=== PATIENT | female | born 1930 | race Caucasian/White ===

== ENCOUNTER 2017-02-28 08:26 | Outpatient (CLI) | payer MEDICARE ==
[~2017-02-28] VITALS: Ht 160 cm; Wt 66.4 kg
--- NOTE | ~2017-02-28 | HEMODYNAMI ---
PATIENT:AD REYNOLDS MEDICAL RECORD: [id number] : [birth year] LOCATION:[facility] D.[address]127 [facility]# [id number] ADMISSION DATE: 02/28/17 Generatedon:03/01/201710:14 Patient name: AD REYNOLDS Patient #: [id number] : 1930 Date of study: 03/01/2017 Page: Of Hemodynamic Procedure Report Patient Data Patient Demographics Procedure consent was obtained First Name: AD Gender: Female Last Name: GAIL : 1930 [facility] Initial: ROBBIE Age: 86 year(s) Patient #: [id number] Race: SSN: [id number] Additional ID: [id number] Contact details Address: [address] [place] [address] State: [place] City: [place] Zip code: [address] Past Medical History Allergies Allergen Reaction Date Comments Reported Other allergy 03/01/2017 Latex, Sulfa, Epinephrine Admission Admission Data Admission Date: 02/28/2017 Admission Time: 8:26 Arrival Date: 02/28/2017 Arrival Time: 8:26 Admit Source: Other Insurance Payor: Medicare Room #: D.2127 Height (in.): 64 BSA: 1.69 (m2) Height (cm.): 162.56 BMI: 24.37 (kg/m2) Weight (lbs.): 142 Weight (kg.): 64.41 Lab Results Lab Result Date: 03/01/2017 Lab Result Time: 0:00 Biochemistry Name Units Result Min Max BUN mg/dl 29 --(----)-* 7 18 Creatinine mg/dl 0.9 --(-*--)-- 0.6 1.3 CBC Name Units Result Min Max Hemoglobin g/dl 11.7 *-(----)-- 13.5 17.5 Procedure Procedure Types Cath Procedure PCI Procedure Coronary Stent Initial Miscellaneous Procedures Moderate Sedation up to 15 minutes Procedure Description Procedure Date Procedure Date: 03/01/2017 Procedure Start Time: 9:53 Procedure End Time: 10:11 Procedure Staff Name Function Akhil Deluna MD Performing Physician Lina Vaughn RT Scrub Dom Michelle RN Nurse Savanna Guillory RT Monitor Indication Angina Procedure Data Cath Procedure Fluoroscopy Diagnostic fluoroscopy Total fluoroscopy Time: 3.6 time: 3.6 min min Diagnostic fluoroscopy Total fluoroscopy dose: dose: 91.02 mGy 91.02 mGy Contrast Material Contrast Material Type Amount (ml) Isovue 370 61 Entry Location Entry Primary Successful Side Size Upsize Upsize Entry Closure Succes sful Closure Location (Fr) 1 (Fr) 2 (Fr) Remarks Device Remarks Femoral Left 6 Fr Exoseal artery Short Estimated blood loss: 5 ml Procedure Complications No complications Procedure Medications Medication Administration Route Dosage Oxygen NC 2 l/min Lidocaine 2% added to field 20 Heparin Flush Bag added to field 2 bags (1000units/500ml NS) 0.9% NaCl I.V. 100 ml/hr Versed I.V. 1 mg Fentanyl I.V. 50 mcg Heparin Bolus I.V. 4000 units Nitroglycerin IC/IA I.C. 200 mcg Versed I.V. 0.5 mg Fentanyl I.V. 25 mcg Hemodynamics Rest BSA: 1.69 (m2) HGB: 11.7 (g/dl) O2 Consumption: Estimated: 145.77 (ml/min) O2 Co nsumption indexed: Estimated:86.25 (ml/min/m) Heart Rate: 65 (bpm) Snapshots Pre Cath Intra NCS Post Cath Vital Signs Time Heart Resp SPO2 NIBP (mmHg) Rhythm Pain Sedation Rate (ipm) (%) Status Level (bpm) 9:41:30 76 18 100 149/87(120) NSR 0 (11) 10(A) , No pain 9:45:50 74 16 98 151/78(114) NSR 0 (11) 10(A) , No pain 9:50:02 76 20 95 133/77(106) NSR 0 (11) 10(A) , No pain 9:54:14 66 18 96 122/69(105) NSR 0 (11) 9(A) , No pain 9:58:28 70 16 95 128/64(89) NSR 0 (11) 9(A) , No pain 10:02:44 72 17 97 122/51(89) NSR 0 (11) 9(A) , No pain 10:06:56 71 18 96 136/74(114) NSR 0 (11) 9(A) , No pain 10:10:41 69 17 99 135/67(94) NSR 0 (11) 10(A) , No pain Medications Time Medication Route Dose Verified Delivered Reason Notes Effectiveness by by 9:45:10 Oxygen NC 2 Akhil Buffnakul used for l/min Regi Michelle RN procedure 9:45:17 Lidocaine 2% added 20ml Akhil Landaverde for local to vial Regi Deluna MD anesthetic field 9:45:23 Heparin Flush added 2 Akhil Landaverde used for Bag to bags Regi Deluna MD procedure (1000units/500ml field NS) 9:45:33 0.9% NaCl I.V. 100 Akhil Thomsonie Per physician ml/hr Regi Michelle RN 9:51:41 Versed I.V. 1 mg Akhil Fernandes for sedation Regi Michelle RN 9:51:47 Fentanyl I.V. 50 Akhil Thomsonie for sedation mcg Regi Michelle RN 9:54:18 Heparin Bolus I.V. 4000 Akhil Thomsonie for units Regi Michelle RN anticoagulation 10:02:27 Nitroglycerin I.C. 200 Akhil Landaverde for IC/IA mcg Regi Deluna MD vasodilation 10:04:03 Fentanyl I.V. 25 Akhil Fernandes for sedation mcg Regi Michelle RN 10:04:57 Versed I.V. 0.5 Akhil Thomsonie for sedation mg Regi Michelle RN Procedure Log Time Note 9:01:51 Informed consent obtained and on chart 9:03:18 Admit Source: Other 9:03:23 Arrival Date: 02/28/2017 8:26:00 AM 9:04:05 Insurance Payor : Medicare 9:04:49 Lab Result : Hemoglobin 11.7 g/dl 9:04:49 Lab Result : Creatinine 0.9 mg/dl 9:04:49 Lab Result : BUN 29 mg/dl 9:04:57 Diagnostic Cath Status : Elective 9:05:19 Indication : Angina 9:05:23 Lina Vaughn RT(R) sent for patient. Start room use. 9:05:24 Time tracking: Regular hours 9:05:29 Plan of Care:Hemodynamics will remain stable., Cardiac rhythm will remain stable., Comfort level will be maintained., Respiratory function will remain adequate., Patient/ family verbilizes understanding of procedure., Procedure tolerated without complication., Recovers from procedure without complications.. 9:28:40 Patient received from Med II to CCL 3 Alert and oriented. Tansferred to table in Supine position. 9:28:41 Warm blankets applied, and pernell hugger turned on for patient comfort. 9:28:42 Correct patient and procedure confirmed by team. 9:28:43 ECG and BP/O2 sat monitors applied to patient. 9:40:23 Baseline sample Acquired. 9:40:23 Vital chart was started 9:40:28 Rhythm: sinus rhythm 9:40:29 Full Disclosure recording started 9:40:33 H&P Date Dictated: 03/01/2017 Within 30 days and on chart., H&P Addendum completed by physician on day of procedure. (MUST COMPLETE FOR ALL OUTPATIENTS). 9:40:34 Pre-procedure instructions explained to patient. 9:40:35 Pre-op teaching completed and patient verbalized understanding. 9:40:36 Family in waiting room. 9:40:38 Patient NPO since Midnight. 9:41:09 Patient allergic to Other allergyLatex, Sulfa, Epinephrine 9:41:13 Is the patient allergic to Iodine/contrast media? No. 9:41:14 Was the patient premedicated? No 9:41:15 Is patient on blood thinner?Yes 9:41:18 ACC The patient was administered the following blood thiners within the last 24 hours: ACCPlavix 9:41:31 Patient diabetic? No. 9:41:34 Previous problem with sedation/anesthesia? No ? 9:41:43 Snore? No 9:41:44 Sleep apnea? No 9:41:45 Deviated septum? No 9:41:45 Opens mouth fully? Yes 9:41:46 Sticks out tongue? Yes 9:41:48 Airway obstruction? No ? 9:41:50 Dentures? No ? 9:42:03 Pre procedure: right dorsailis pedis pulse 2+ Normal; easily identifiable; not easily obliterated 9:42:07 Patient pain scale 0/10 ?. 9:42:14 IV patent on arrival in left forearm with 0.9% NaCl at [facility]. 9:42:16 Lab results completed and on chart. 9:42:21 Left groin area was prepped with chlora-prep and draped in sterile fashion 9:42:22 Alarms reviewed by R. N. 9:42:22 Sharps counted by scrub and verified by R.N. 9:45:10 Oxygen 2 l/min NC was administered by Dom Michelle RN; used for procedure; 9:45:17 Lidocaine 2% 20ml vial added to field was administered by Akhil Deluna MD; for local anesthetic; 9:45:23 Heparin Flush Bag (1000units/500ml NS) 2 bags added to field was administered by Akhil Deluna MD; used for procedure; 9:45:33 0.9% NaCl 100 ml/hr I.V. was administered by Dom Michelle RN; Per physician; 9:49:23 Physician arrived 9:49:24 --------ALL STOP TIME OUT------ 9:49:24 Final Timeout: patient, procedure, and site verified with staff and physician. All members of the team are in agreement. 9:49:26 Left groin site verified by team. 9:49:29 Physical assessment completed. ASA score P 2 - A patient with mild systemic disease as per Akhil Deluna MD. 9:49:32 Sedation plan: IV Moderate Sedation Versed, Fentanyl 9:49:44 Use device set Femoral PCI 9:49:45 Acist Syringe opened to sterile field. 9:49:45 Acist Hand Control opened to sterile field. 9:49:45 Bag Decanter opened to sterile field. 9:49:46 Medline Cath Pack opened to sterile field. 9:49:46 Terumo 6Fr [place] Sheath opened to sterile field. 9:49:46 St Rito 260cm J .035 wire opened to sterile field. 9:49:47 Merit BasixCompak Inflation Kit opened to sterile field. 9:49:47 Acist Manifold opened to sterile field. 9:49:48 Tegaderm 4 x 4 opened to sterile field. 9:50:00 Bolton Whisper J 300cm 0.014 guide wire opened to sterile field. 9:51:41 Versed 1 mg I.V. was administered by Buffie Michelle RN; for sedation; 9:51:47 Fentanyl 50 mcg I.V. was administered by Dom Michelle RN; for sedation; 9:52:38 Procedure started. 9:53:52 Local anesthetic to left femerol artery with Lidocaine 2% by Akhil Deluna MD.INITIAL ACCESS ONLY 9:54:00 A 6 Fr Short sheath was inserted into the Left Femoral artery 9:54:15 Cordis 6FR XBLAD 3.5 guide catheter opened to sterile field. 9:54:18 Heparin Bolus 4000 units I.V. was administered by Dom Michelle RN; for anticoagulation; 9:54:46 6 Fr xblad 3.5 guide catheter was inserted over the wire 9:56:23 whisper wire advanced. 9:56:28 Wire advanced across lesion. 9:58:08 Inflation number: 1 A [place] Sci [place] 3.0 X 20 balloon was prepped and advanced across the Mid LAD, then inflated to 13 ADAMA for 0:10 (min:sec). 9:58:26 Inflation number: 2 The [place] Sci [place] 3.0 X 20 balloon was reinflated across the Mid LAD, to 17 ADAMA for 0:10 (min:sec). 9:58:57 Balloon removed over the wire. 10:00:57 Inflation Number: 3 A Biofreedom 3.0 x 28 stent was prepped and advanced across the Mid LAD. The stent was deployed at 15 ADAMA for 0:10 (min:sec). 10:01:26 Inflation number: 4 The stent balloon was then re-inflated across the Mid LAD to 9 ADAMA for 0:10 (min:sec). 10:02:27 Nitroglycerin IC/IA 200 mcg I.C. was administered by Akhil Deluna MD; for vasodilation; 10:03:56 Stent catheter was removed intact over wire. 10:03:57 Wire removed. 10:03:57 Guide catheter removed. 10:04:03 Fentanyl 25 mcg I.V. was administered by Dom Michelle RN; for sedation; 10:04:06 Cordis 6Fr Exoseal opened to sterile field. 10:04:14 Sheath removed intact; hemostasis achieved with Exoseal to the Left Femoral artery. 10:04:18 Procedure ended.(Physican Out) 10:04:25 St Rito Femstop Arch Gold opened to sterile field. 10:04:57 Versed 0.5 mg I.V. was administered by Dom Michelle RN; for sedation; 10::44 Fluoroscopy time 03.60 minutes. 10::49 Fluoroscopy dose: 91.02 mGy 10::49 Flurop Dose total: 91.02 10:09:54 Contrast amount:Isovue 370 61ml. 10::55 Sharps counted by scrub and verified by R.N. 10:10:08 Femstop placed over the left femerol artery at 150 mmHg. Hemostasis achieved. 10:10:10 Post Procedure Pulses reassessed and unchanged 10:10:15 Post procedure rhythm: unchanged. 10::17 Estimated blood loss: 5 ml 10::19 Post procedure instruction explained to patient.Patient verbalizes understanding. 10:10:19 Patient needs reinforcement of post procedure teaching. 10:11:02 Procedure type changed to Cath procedure, PCI procedure, Coronary Stent Initial, Miscellaneous Procedures, Moderate Sedation up to 15 minutes 10:11:25 Procedure and supply charges have been captured, reviewed, submitted and are correct. 10:11:32 Procedure Complication : No complications 10:11:34 Vital chart was stopped 10:11:34 See physician's report for complete and final results. 10:11:37 Report given to Med II. 10:11:39 Patient transfered to Med II with Stretcher. 10:11:41 Procedure ended. 10:11:41 Full Disclosure recording stopped 10::55 ACC-PCI Only Patient was given prescriptions, or instructed by Akhil Deluna MD to start/continue the following medications upon discharge: Plavix 10::57 End room use (Document Last) Intervention Summary Intervention Notes Time ActionType Lesion and Equipment Action# Pressure Duration Attributes Used 9:58:08 Inflate Mid LAD Moscow Sci 1 13 00:10 balloon [place] 3.0 X 20 balloon 9:58:26 Reinflate Mid LAD [place] Sci 2 17 00:10 balloon [place] 3.0 X 20 balloon 10:00:57 Place stent Mid LAD Biofreedom 3 15 00:10 3.0 x 28 stent 10:01:26 Reinflate Mid LAD Biofreedom 4 9 00:10 stent 3.0 x 28 balloon stent Device Usage Item Name Manufacture Quantity Catalog Number Hospital Part Current Mini mal Lot# / Charge Number Stock Stock Serial# Code Acist Acist 1 [id number] 682579 106692 20 Syringe Medical Systems Inc Acist Hand Acist 1 84602 128838 060803 499882 5 Control Medical Systems Inc Bag Microtek 1 2002S 855346 72333 778483 5 Decanter Medical Inc. Medline Cardinal 1 [id number] 924972 88059 319011 5 Cath Pack Health Terumo 6Fr Terumo 1 [id number] 420852 224073 458677 [address] Rito 1 [id number] 935838 676572 759321 30 260cm J .035 wire Merit Merit 1 [id number] 706783 910564 888309 15 BasixCompak Medical Inflation Kit Acist Acist 1 88359 379195 861008 438316 5 Manifold Medical Systems Inc Tegaderm 4 3M 1 1626W 024234 006119 436016 5 x 4 Bolton Bolton 1 [id number] 185530 137807 009308 5 Whisper J Vascular 300cm 0.014 guide wire Cordis 6FR Cardinal 1 [id number] 844298 168563 223279 10 XBLAD 3.5 Health guide catheter Moscow Sci [place] 1 [id number] 831471 711298 538916 1 [id number] Solaicx 3.0 X 20 balloon Biofreedom Biosensors 1 [facility]2-8871 934653 444009 5 [id number] 3.0 x 28 [place] SA stent Cordis 6Fr Cardinal 1 EX600 358678 391829 075649 [address] St Rito 1 [id number] 330842 456711 755635 5 Femstop Arch Gold Signature Audit [place] Stage Time Signature Unsigned Intra-Procedure 03/01/2017 Lina Roderick 10:13:50 AM RT(R) Signatures Monitor : Savanna Guillory Signature : RT Date : Time : [facility] [address] [place] [address]
--- NOTE | ~2017-02-28 | OP ---
PATIENT NAME: AD REYNOLDS MEDICAL RECORD: [id number] :[birth year] LOCATION:D.M2 D.2127 ADMISSION DATE: SURGEON: MARGARETTE ROONEY MD DATE OF OPERATION: 03/01/2017 PROCEDURES: 1. PTCA stent, LAD. 2. Selective coronary angiography. PROCEDURE IN DETAIL: After informed consent was obtained and after detailed explanation of risks, benefits as well as alternative therapies, the patient elected to proceed with angiogram and angioplasty. The left femoral area was prepped and draped in normal sterile fashion. The right femoral artery was cannulated via modified Seldinger technique with placement of 6-Maldivian sheath. All catheters exchanged through this sheath. 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 This was addressed with a 3.0 x 28 mm BioFreedom stent. Result was 0% residual stenosis. OVERALL IMPRESSION: Successful percutaneous transluminal coronary angioplasty stent of the left anterior descending going from 95% initial stenosis to 0% residual stenosis. TRANSINT:[id number] Voice Confirmation ID: [id number] DOCUMENT ID: [id number] MARGARETTE ROONEY MD CC: [id number] DICTATION DATE: 03/01/17 1007 [address] MAN: 03/01/17 1139 [facility] [address] [place] [address]
--- NOTE | ~2017-02-28 | OP ---
PATIENT NAME: AD REYNOLDS MEDICAL RECORD: [id number] :[birth year] LOCATION:D.M2 D.2127 ADMISSION DATE: SURGEON: MARGAERTTE ROONEY MD DATE OF OPERATION: 02/28/2017 PROCEDURES: 1. PTCA stent, RCA. 2. Intravascular ultrasound, RCA. 3. Left heart catheterization. 4. Selective coronary angiography. 5. Left ventriculogram. INDICATIONS: Angina and coronary artery disease. PROCEDURE IN DETAIL: After informed consent was obtained and after a detailed explanation of risks, benefits as well as alternative therapies, the patient elected to proceed with angiogram and angioplasty. The right femoral area was prepped and draped in normal sterile fashion. Right femoral artery was cannulated via modified Seldinger technique with placement of 6-Amharic sheath. All catheters exchanged through this sheath. FINDINGS: The left ventriculogram was performed in standard 30-degree JOHNSON view, reveals global hypokinesis throughout all segments. Overall ejection fraction in the 35%-40% range. SELECTIVE CORONARY ANGIOGRAPHY: 1. Left main showed no significant angiographic disease. 2. Left anterior descending has previously placed stents. There is 95% in-stent restenosis in the mid vessel. 3. Left circumflex has moderate irregularities, but no flow-limiting stenosis. 4. Right coronary has greater than 70% stenosis in the mid vessel confirmed by intravascular ultrasound. PTCA STENT OF THE RIGHT CORONARY: The stent used was a 3.5 x 24 mm BioFreedom. Result was 0% residual stenosis. OVERALL IMPRESSION: Successful percutaneous transluminal coronary angioplasty stent of the right coronary artery going from greater than 70% initial stenosis to 0% residual. PLAN: PTCA stent of the LAD in the a.m. TRANSINT:[id number] Voice Confirmation ID: [id number] DOCUMENT ID: [id number] MARGARETTE ROONEY MD CC: [id number] DICTATION DATE: 02/28/17 1127 FSR: 02/28/17 [address] [place] [address]
--- NOTE | ~2017-02-28 | HEMODYNAMI ---
PATIENT:AD REYNOLDS MEDICAL RECORD: [id number] : [birth year] LOCATION:[facility] ADMISSION DATE: 02/28/17 Generatedon:02/28/201711:36 Patient name: AD REYNOLDS Patient #: [id number] SSN: : 1930 Date of study: 02/28/2017 Page: Of Hemodynamic Procedure Report Patient Data Patient Demographics Procedure consent was obtained First Name: AD Gender: Female Last Name: GAIL : 1930 Middle Initial: ROBBIE Age: 86 year(s) Patient #: [id number] Race: Unknown Additional ID: [id number] Contact details [address]: [address] [place] [address] State: [place] City: [place] Zip code: [address] Admission Admission Data Admission Date: 02/28/2017 Admission Time: 8:26 Height (in.): 64 BSA: 1.69 (m2) Height (cm.): 162.56 BMI: 24.37 (kg/m2) Weight (lbs.): 142 Weight (kg.): 64.41 Procedure Procedure Types Cath Procedure Diagnostic Procedure LHC LH w/Coronaries FFR/IVUS Intra-Coronary IVUS Initial PCI Procedure Coronary Stent Initial Miscellaneous Procedures Moderate Sedation up to 15 minutes Procedure Description Procedure Date Procedure Date: 02/28/2017 Procedure Start Time: 11:04 Procedure End Time: 11:28 Procedure Staff Name Function Samy Sanchez RT Monitor Luciano Bridges RT Scrub Akhil Deluna MD Performing Physician Cori Gaspar RN Nurse Procedure Data Cath Procedure Fluoroscopy Diagnostic fluoroscopy Total fluoroscopy Time: 3.1 time: 3.1 min min Diagnostic fluoroscopy Total fluoroscopy dose: 401 dose: 401 mGy mGy Contrast Material Contrast Material Type Amount (ml) Isovue 300 109 Entry Location Entry Primary Successful Side Size Upsize Upsize Entry Closure Succes sful Closure Location (Fr) 1 (Fr) 2 (Fr) Remarks Device Remarks Femoral Right 5 Fr 6 Fr artery Short Estimated blood loss: 10 ml Diagnostic catheters Device Type Used For End Catheter Placement Cordis 5Fr Pigtail Procedure Catheter (MP) Cordis 5Fr JL 4.0 Procedure Catheter (MP) Cordis 5Fr 3DRC Catheter Procedure (MP) Procedure Complications No complications Procedure Medications Medication Administration Route Dosage Oxygen NC 2 l/min Heparin Flush Bag added to field 2 bags (1000units/500ml NS) Lidocaine 2% added to field 20 Radial Cocktail added to field 1 syringe (Verapomil 2mg/Nitro 400mcg/Heparin 1500units) Versed I.V. 0.5 mg Fentanyl I.V. 25 mcg Fentanyl I.V. 25 mcg Versed I.V. 0.5 mg Heparin Bolus I.V. 4000 units Integrilin (Bolus I.V. 5.6 ml 2mg/ml) Plavix P.O. 600 mg Aspirin P.O. 325 mg Hemodynamics Rest BSA: 1.69 (m2) O2 Consumption: Estimated: 148.59 (ml/min) O2 Consumption indexed : Estimated:87.92 (ml/min/m) Heart Rate: 69 (bpm) Pressure Samples Time Site Value (mmHg) Purpose Heart Use Rate(bpm) 11:07 AO 132/65(90) Snapshot 59 Snapshots Pre Cath Intra NCS Post Cath Vital Signs Time Heart Resp SPO2 NIBP (mmHg) Rhythm Pain Sedation Rate (ipm) (%) Status Level (bpm) 10:47:38 68 20 98 171/91(123) A-Fib 0 (11) 10(A) , No pain 10:51:58 64 20 96 165/89(122) A-Fib 0 (11) 10(A) , No pain 10:56:18 64 17 98 161/78(117) A-Fib 0 (11) 10(A) , No pain 11:00:38 63 17 96 147/73(102) A-Fib 0 (11) 10(A) , No pain 11:04:52 66 16 97 136/74(97) A-Fib 0 (11) 9(A) , No pain 11:09:04 60 16 97 139/69(110) A-Fib 0 (11) 9(A) , No pain 11:13:20 61 16 97 152/64(119) A-Fib 0 (11) 9(A) , No pain 11:17:42 65 16 97 126/61(81) A-Fib 0 (11) 10(A) , No pain 11:22:41 69 16 96 Measuring A-Fib 0 (11) 10(A) , No pain 11:22:54 65 16 96 139/68(95) A-Fib 0 (11) 10(A) , No pain 11:27:04 60 15 98 154/83(113) A-Fib 0 (11) 10(A) , No pain Medications Time Medication Route Dose Verified Delivered Reason Note s Effectiveness by by 10:44:06 Oxygen NC 2 l/min Akhil Cori Per physician Regi Gaspar RN 10:44:13 Heparin Flush added 2 bags Akhilshivam Mcdonaldrey used for Bag to Regi Deluna MD procedure (1000units/500ml field NS) 10:44:19 Lidocaine 2% added 20ml Akhil Akhil used for to vial Regi Deluna MD procedure field 10:44:25 Radial Cocktail added 1 Akhil Akhil for local (Verapomil to syringe Regi Deluna MD anesthetic 2mg/Nitro field 400mcg/Hepari 10:59:44 Versed I.V. 0.5 mg Akhil Cori for sedation Regi Gaspar RN 10:59:50 Fentanyl I.V. 25 mcg Akhil Cori for sedation Regi Gaspar RN 11:01:57 Fentanyl I.V. 25 mcg Akhil Cori for sedation Regi Gaspar RN 11:02:01 Versed I.V. 0.5 mg Akhil Cori for sedation Regi Gaspar RN 11:11:32 Heparin Bolus I.V. 4000 Akhil Cori for dose units Regi Gaspar RN anticoagulation verified wtih dr deluna 11:16:31 Integrilin I.V. 5.6 ml Akhil Cori for wast ed (Bolus 2mg/ml) Regi Gaspar RN antiplatelet 4.4mL therapy 11:18:16 Plavix P.O. 600 mg Akhil Cori for Regi Gaspar RN antiplatelet therapy 11:18:24 Aspirin P.O. 325 mg Akhil Cori for Regi Gaspar RN antiplatelet therapy Procedure Log Time Note 10:30:08 Samy STEVEN(R) sent for patient. Start room use. 10:39:50 ACC Patient presents with Stable Angina CCS Anginal Class 2--Slight limitation of ordinary activity. 10:39:53 Diagnostic Cath status Elective 10:40:15 Time tracking: Regular hours 10:40:22 Plan of Care:Hemodynamics will remain stable., Cardiac rhythm will remain stable., Comfort level will be maintained., Respiratory function will remain adequate., Patient/ family verbilizes understanding of procedure., Procedure tolerated without complication., Recovers from procedure without complications.. 10:40:26 Patient received from Pre/Post Procedure Room to CCL 2 Alert and oriented. Tansferred to table in Supine position. 10:40:27 Warm blankets applied, and pernell hugger turned on for patient comfort. 10:40:28 Correct patient and procedure confirmed by team. 10:40:29 Signed procedure consent form obtained from patient. 10:40:30 ECG and BP/O2 sat monitors applied to patient. 10:44:06 Oxygen 2 l/min NC was administered by Cori Gaspar RN; Per physician; 10:44:13 Heparin Flush Bag (1000units/500ml NS) 2 bags added to field was administered by Akhil Deluna MD; used for procedure; 10:44:19 Lidocaine 2% 20ml vial added to field was administered by Akhil Deluna MD; used for procedure; 10:44:25 Radial Cocktail (Verapomil 2mg/Nitro 400mcg/Heparin 1500units) 1 syringe added to field was administered by Akhil Deluna MD; for local anesthetic; 10:46:28 Vital chart was started 10:52:44 Baseline sample Acquired. 10:52:47 Rhythm: paced 10:52:49 Full Disclosure recording started 10:53:01 H&P Date Dictated: 02/09/2017 Within 30 days and on chart., H&P Addendum completed by physician on day of procedure. (MUST COMPLETE FOR ALL OUTPATIENTS). 10:53:02 Pre-op teaching completed and patient verbalized understanding. 10:53:02 Pre-procedure instructions explained to patient. 10:53:03 Family in waiting room. 10:53:05 Patient NPO since Midnight. 10:53:07 Is the patient allergic to Iodine/contrast media? No. 10:53:09 Is patient on blood thinner?Yes 10:53:14 ACC The patient was administered the following blood thiners within the last 24 hours: Xarelto 10:53:17 Patient diabetic? Yes. 10:53:18 If diabetic: On Metformin? Yes 10:53:20 If on Metformin: Last Dose? 02/26/2017 10:53:22 Patient not . Patient is over age 55. 10:53:24 Previous problem with sedation/anesthesia? No ? 10:53:26 Snore? No 10:53:27 Sleep apnea? No 10:53:28 Deviated septum? No 10:53:29 Opens mouth fully? Yes 10:53:30 Sticks out tongue? Yes 10:53:32 Airway obstruction? No ? 10:53:38 Dentures? No ? 10:54:06 Pre procedure: right dorsailis pedis pulse 1+ Palpable, but thready & weak; easily obliterated 10:54:08 Modified Paul's test Ulnar < 7 seconds 10:54:10 Patient pain scale 0/10 ?. 10:54:15 IV patent on arrival in left forearm with 0.9% NaCl at O. 10:54:18 Lab results completed and on chart. 10:54:27 Right Radial & Right Groin area was prepped with chlora-prep and draped in sterile fashion 10:54:29 Alarms reviewed by R. N. 10:54:30 Sharps counted by scrub and verified by R.N. 10:55:53 Patient Height : 162.56 cm 10:55:56 Patient Weight : 64.41 kg 10:57:42 Final Timeout: patient, procedure, and site verified with staff and physician. All members of the team are in agreement. 10:57:42 --------ALL STOP TIME OUT------ 10:57:44 Right Radial & Right Groin site verified by team. 10:57:47 Physical assessment completed. ASA score P 2 - A patient with mild systemic disease as per Akhil Deluna MD. 10:57:50 Sedation plan: IV Moderate Sedation Versed, Fentanyl 10:59:43 Use device set Radial Dx 10:59:44 Versed 0.5 mg I.V. was administered by Cori Gaspar RN; for sedation; 10:59:45 Tegaderm 4 x 4 opened to sterile field. 10:59:46 Acist Manifold opened to sterile field. 10:59:47 Acist Hand Control opened to sterile field. 10:59:48 Acist Syringe opened to sterile field. 10:59:49 Bag Decanter opened to sterile field. 10:59:49 Medline Cath Pack opened to sterile field. 10:59:50 St Rito 260cm J .035 wire opened to sterile field. 10:59:50 Fentanyl 25 mcg I.V. was administered by Cori Gaspar RN; for sedation; 11:01:57 Fentanyl 25 mcg I.V. was administered by Cori Gaspar RN; for sedation; 11:02:01 Versed 0.5 mg I.V. was administered by Cori Gaspar RN; for sedation; 11:04:02 Procedure started. 11:04:36 Physician opted for femoral access. 11:04:41 Local anesthetic to right femoral artery with Lidocaine 2% by Akhil Deluna MD.INITIAL ACCESS ONLY 11:05:24 A 5 Fr sheath was inserted into the Right Femoral artery 11:05:29 Use device set Multipack Set 11:05:31 Diagnostic Infinity 5Fr Multipack catheter opened to sterile field. 11:05:[address]umo [address] [place] Sheath opened to sterile field. 11:06:15 A Cordis 5Fr Pigtail Catheter (MP) was advanced over the wire and used for Procedure. 11:06:20 LV angiography performed. 11:06:21 LV gram done using JOHNSON 11:06:26 EF : 35 % 11:06:32 Injector settings: Ml/sec: 10, Volume: 20, 11:06:33 Catheter removed. 11:06:43 A Cordis 5Fr JL 4.0 Catheter (MP) was advanced over the wire and used for Procedure. 11:07:25 Merit BasixCompak Inflation Kit opened to sterile field. 11:07:[address] Terumo [address] [place] Sheath opened to sterile field. 11:07:26 [place] Whisper J 300cm 0.014 guide wire opened to sterile field. 11:07:33 LCA angiography performed. 11:08:12 Catheter removed. 11:08:17 A Cordis 5Fr 3DRC Catheter (MP) was advanced over the wire and used for Procedure. 11:08:46 RCA angiography performed. 11:10:04 [place] IVUS Catheter opened to sterile field. 11:10:24 Medtronic Launcher 6Fr AR 2.0 guide catheter opened to sterile field. 11:10:30 Catheter removed. 11:10:42 Sheath upsized to a 6 Fr Short. 11:10:55 6 Fr AR 2 guide catheter was inserted over the wire 11:11:32 Whisper wire advanced. 11:11:32 Heparin Bolus 4000 units I.V. was administered by Cori Gaspar RN; for anticoagulation; dose verified wtih dr deluna 11:11:52 Wire advanced across lesion. 11:11:56 IVUS catheter advanced over wire. 11:12:29 IVUS pass to RCA lesion performed. 11:12:59 IVUS catheter removed over wire. 11:13:25 Wire removed. 11:15:38 Whisper wire advanced. 11:16:31 Integrilin (Bolus 2mg/ml) 5.6 ml I.V. was administered by Cori Gaspar RN; for antiplatelet therapy; wasted 4.4mL 11:16:41 Inflation Number: 1 A Biofreedom 3.5 x 24 stent was prepped and advanced across the Mid RCA. The stent was deployed at 13 ADAMA for 0:10 (min:sec). 11:16:48 Inflation number: 2 The stent balloon was then re-inflated across the Mid RCA to 13 ADAMA for 0:10 (min:sec). 11:17:18 Stent catheter was removed intact over wire. 11:17:19 Wire removed. 11:17:20 Guide catheter removed. 11:17:49 Cordis 6Fr Exoseal opened to sterile field. 11:18:13 Procedure ended.(Physican Out) 11:18:16 Plavix 600 mg P.O. was administered by Cori Gaspar RN; for antiplatelet therapy; 11:18:24 Aspirin 325 mg P.O. was administered by Cori Gaspar RN; for antiplatelet therapy; 11:22:48 Fluoroscopy time 03.10 minutes. 11:22:52 Fluoroscopy dose: 401 mGy 11:22:52 Flurop Dose total: 401 11:22:57 Contrast amount:Isovue 300 109ml. 11:22:59 Sharps counted by scrub and verified by R.N. 11:23:00 Insertion/operative site no bleeding no hematoma. 11:23:04 Post-op/insertion site Right Femoral artery dressed using a 4 x 4 and Tegaderm. 11:23:22 Post Procedure Pulses reassessed and unchanged 11:23:27 Post-procedure physical assessment completed. ASA score P 2 - A patient with mild systemic disease as per Akhil Deluna MD. 11:23:29 Post procedure rhythm: unchanged. 11:23:31 Estimated blood loss: 10 ml 11:23:32 Post procedure instruction explained to patient.Patient verbalizes understanding. 11:23:33 Patient needs reinforcement of post procedure teaching. 11:23:49 Procedure type changed to Cath procedure, Diagnostic procedure, LHC, LHC w/Coronaries, FFR/IVUS, Intra-Coronary IVUS Initial, PCI procedure, Coronary Stent Initial, Miscellaneous Procedures, Moderate Sedation up to 15 minutes 11:24:12 Procedure Complication : No complications 11:24:39 Procedure and supply charges have been captured, reviewed, submitted and are correct. 11:26:54 See physician's report for complete and final results. 11:26:54 Vital chart was stopped 11:27:55 Report given to PCU. 11:27:58 Patient transfered to PCU with Bed. 11:28:00 Full Disclosure recording stopped 11:28:00 Procedure ended. 11:28:28 End room use (Document Last) Intervention Summary Intervention Notes Time ActionType Lesion and Equipment Action# Pressure Duration Attributes Used 11:16:41 Place stent Mid RCA Biofreedom 1 13 00:10 3.5 x 24 stent 11:16:48 Reinflate Mid RCA Biofreedom 2 13 00:10 stent 3.5 x 24 balloon stent Device Usage Item Name Manufacture Quantity Catalog Hospital Part Current Minimal Lot# / Number Charge Number Stock Stock Serial# Code Tegaderm 4 1 [id number] 231890 822305 5 x 4 Acist Acist 1 44477 343077 989737 726496 5 Manifold Medical Systems Inc Acist Hand Acist 1 40856 943690 605418 712742 5 Control Medical Systems Inc Acist Acist 1 61019 797881 284312 474024 20 Syringe Medical Systems Inc Medline Cardinal 1 [id number] 019805 70503 817634 5 Cath Pack Health Bag Microtek 1 028680 78877 851906 5 DecAll Def [employer] Inc[address] Rito St Rito 1 [id number] 417060 290572 020622 30 260cm J .035 wire Diagnostic Cardinal 1 [id number] 496835 99958 508361 30 Infinity Health 5Fr Multipack catheter Terumo 5Fr Terumo 1 [id number] 884479 015601 093869 [address] Sheath Cordis 5Fr Cardinal 1 708985 5 Pigtail Health Catheter (MP) Cordis 5Fr Cardinal 1 501609 5 JL 4.0 Health Catheter (MP) Terumo 6Fr Terumo 1 [id number] 869627 119088 614049 [address] Sheath Merit Merit 1 [id number] 624504 550124 213225 15 BasixCompak Medical Inflation Kit [place] 1 [id number] 967997 649677 945114 5 Whisper J Vascular 300cm 0.014 guide wire Cordis 5Fr Cardinal 1 487736 5 3DRC Health Catheter (MP) [place] 1 [id number] 915020 204094 954626 8 [place] IVUS Catheter Medtronic Medtronic 1 [id number] 280868 56152 807800 1 Launcher 6Fr AR 2.0 guide catheter Biofreedom Biosensors 1 [id number] 218767 825986 5 [id number] 3.5 x 24 [place] SA stent Cordis 6Fr Cardinal 1 EX600 892963 555205 596700 10 [facility] Signature Audit Braymer Stage Time Signature Unsigned Intra-Procedure 02/28/2017 Samy Sanchez RT(R) 11:28:58 AM RT(R) 02/28/2017 11:35:03 AM Intra-Procedure 02/28/2017 Samy Sanchez 11:36:14 AM RT(R) Signatures Monitor : Samy Sanchez RT Signature : Date : Time : [facility] [address] [place] [address]
--- NOTE | ~2017-02-28 | DS ---
PATIENT:AD REYNOLDS :[birth year] MEDICAL RECORD: [id number] DISCHARGE SUMMARY ADMISSION DATE: 02/28/17 DISCHARGE DATE: 03/01/17 DATE OF SERVICE: 03/01/2017 DIAGNOSES: 1. Angina. 2. Coronary artery disease. 3. Percutaneous transluminal coronary angioplasty stent right coronary artery and left anterior descending this admission. HOSPITAL COURSE: Mrs. Reynolds presents with shortness of breath and anginal symptomatology, found to have 3-vessel coronary artery disease, underwent successful PTCA stent of the RCA and LAD and had a remarkable improvement in her angio with no further shortness of breath, no further anginal symptomatology and was discharged home with the addition of Plavix to her medical regimen, to continue her Eliquis she was on previously for her atrial fibrillation and would discontinued the aspirin. The only complication she had, she had a minor hematoma in conjunction with the second procedure on the left groin. She had immediate FemoStop after the sheath was pulled. No further hematoma. She left with a stable groin. Hematoma was approximately quarter sized and was asymptomatic from this standpoint. We will follow up with [facility] in 1 month. TRANSINT:[id number] Voice Confirmation ID: [id number] DOCUMENT ID: [id number] MARGARETTE ROONEY MD CC: [id number] DICTATION DATE: 03/01/17 155 VP [employer] SOCIAL MEDIA AND CRM: 03/02/17 0124 DEP CLI 03/01/17 [facility] [address] [place] [address]
[~2017-02-28 08:26] MED LIST: BAYER CHEWABLE81 MG; BAYER CHEWABLE81 MG PO; BETAPACE 80 MG80 MG PO; BETIMOL15 ML LEFT EYE; CALCIUM 600+D T1 TA1; CALCIUM 600+D T1 TA1 PO; ESTER-C 500 MG1 TAB PO; FISH OIL 1,0001 CA1 PO; FORTAMET500 MG/BOT PO; HYDROCODONE-APA1 TAB PO; IMDUR60 MG PO; LASIX20 MG PO; MICARDIS HCT 801 TAB PO; MICARDIS80 MG PO; POTASSIUM99 M1; POTASSIUM99 M1 PO; PRAVACHOL20 MG PO; PRILOSEC20 MG PO; RYTHMOL150 MG PO; SYNTHROID100 MCG PO; XARELTO20 MG PO; ZANTAC150 MG PO
[2017-02-28] MEDS ORDERED: FLINTSTONE1 TAB.CHEW PO (09:33)
[2017-02-28] MEDS ORDERED: CO Q-10100 MG PO (09:33)
[2017-02-28] MEDS ORDERED: OMEGA-3100 MG PO (09:34)
[2017-02-28 09:35] VITALS: BP 142/75; BMI 25.2
[2017-02-28 10:28] LABS: HEMATOCRIT 34.8 % (36.0-48.0); HEMOGLOBIN 11.7 g/dL (12-16); LYMPHOCYTES 34.5 % (15-50); MCH 31.6 pg (26.0-34.0); MCHC 33.6 g/dL (31.0-37.0); MCV 94.1 fL (80.0-100.0); MEAN PLATELET VOLUME 11.2 fL (7.4-10.4); NEUTROPHILS 53.7 % (40-80); PLATELET COUNT 160 10x3/uL (130-400); RDW 12.5 % (11.5-14.5); WBC 5.8 10x3/uL (4.8-10.8)
[2017-02-28 10:36] LABS: ANION GAP 12.3 mmol/L (8-16); CALCIUM 8.9 mg/dL (8.5-10.1); CREATININE - SERUM 0.9 mg/dL (0.6-1.3); POTASSIUM - SERUM 4.3 mmol/L (3.5-5.1)
[2017-02-28 12:09] LABS: CKMB 0.8 U/L (0.0-3.6); CREATINE KINASE 62 UL (21-215); TROPONIN-I < 0.017 ng/mL (0.000-0.060)
[2017-02-28 15:10] VITALS: BP 187/89; Ht 160 cm; Wt 66.4 kg
--- NOTE | 2017-02-28 19:30 | NUR ---
UP AD JUANITO W/O DIFF. LEFT WRIST IV INTACT WITH NO R/S NOTED AT SITE. RT GROIN XO SEAL NOTED, PPP SKIN WARM AND DRY. ON ROOM AIR, TELEMETRY SHOWING HR PACED PER BULK LOADER. HOB UP SR UP X2, C/L IN REACH. CONTINUE TO MONITOR.
[2017-02-28 21:58] VITALS: BP 143/61
--- NOTE | 2017-02-28 23:02 | NUR ---
EYES CLOSED, RESP UNLAB WITH NO S/S OF ACUTE DISTRESS NOTED. C/L IN REACH.
[2017-03-01 02:03] VITALS: BP 115/52
[2017-03-01 05:44] VITALS: BP 136/62
[2017-03-01 09:06] VITALS: BP 114/63
--- NOTE | 2017-03-01 09:06 | NUR ---
ALERT AND ORIENTED X4. 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 INITIATE PRE-OP. PRE-OP COMPLETE. CONTINUE PLAN OF CARE AND SAFETY PRECAUTIONS.
--- NOTE | 2017-03-01 10:25 | NUR ---
RETURN TO ROOM VIA BED FROM SECURITY DELIVERY SPECIALIST. SEDATED. AROUSES TO DEEP STIMULI. LT GROIN HEMATOMA MARKED. FEMSTOP IN PLACE FOR 1HR. PULSES +2 BILATERALLY. FREE FROM BLEEDING. AT BEDSIDE. BP-124/59, T-98 AXILLARY, P-71bpm, R-18. CONTINUE PLAN OF CARE. BED LOCKED AND LOW. CALL LIGHT IN REACH. BED FLAT FOR 5HRS. CONTROLLED A-FIB 71bpm.
[2017-03-01 12:43] VITALS: BP 122/58
--- NOTE | 2017-03-01 12:54 | NUR ---
RESTING IN BED. LAYING FLAT. AT BEDSIDE. FEM-STOP AIR OUT. NO BLEEDING. HEMATOMA SOFTENING. DENIES PAIN OR SOB. LT FA IV INFILTRATED. DC LT FA IV TIP INTACT. CONTROLLED A-FIB WITH PACED BEATS ON TELEMETRY. EKG COMPLETE PLACED ON CHART. CONTINUE PLAN OF CARE AND SAFETY PRECAUTIONS.
[2017-03-01] MEDS ORDERED: PLAVIX75 MG PO (13:49)
[2017-03-01] MEDS ORDERED: ASPIRIN81 MG PO (13:49)
[2017-03-01 15:42] LABS: CKMB 0.6 U/L (0.0-3.6); CREATINE KINASE 27 UL (21-215)
--- NOTE | 2017-03-01 15:46 | NUR ---
BED REST UP. GROINS STABLE.
[2017-03-01 15:56] LABS: TROPONIN-I 0.182 ng/mL (0.000-0.060)
--- NOTE | 2017-03-01 16:29 | NUR ---
IV AND TELEMETRY DCD. DC PLANS GIVEN. UNDERSTANDING VOICED. ESCORTED TO CAR BY W/C. LEAVING HOSP WITH .
== END 2017-03-01 16:30 | disposition home or self-care (01) ==
LOC: D.M2 08:26 → D.CATH 08:26 → D.M2 11:38 → D.CATH 03-01 16:30
PROVIDERS: Internal Medicine Interventional Cardiology
DX: I25.119 Atherosclerotic heart disease of native coronary artery with unspecified angina pectoris (principal); T82.855A Stenosis of coronary artery stent, initial encounter; I48.91 Unspecified atrial fibrillation; Z79.01 Long term (current) use of anticoagulants; Z00.6 Encounter for examination for normal comparison and control in clinical research program
CPT/HCPCS: 92978; 93458; C9600 ×2

== ENCOUNTER 2017-03-21 08:01 | Outpatient (CLI) | payer MEDICARE ==
[~2017-03-21] VITALS: Ht 160 cm; Wt 64.5 kg
--- NOTE | ~2017-03-21 | OP ---
PATIENT NAME: AD REYNOLDS MEDICAL RECORD: [id number] :[birth year] LOCATION:D.CAT ADMISSION DATE: SURGEON: MARGARETTE ROONEY MD DATE OF OPERATION: 03/21/2017 PROCEDURE: Direct current cardioversion. INDICATION: IV sedation was performed per anesthesia. Continuous heart rate, O2 saturation, blood pressure monitoring were all undertaken, all of which remains stable. She received 3 shocks at 200, 300 and 360 joules, restoring sinus rhythm each time, but reverting back to atrial fibrillation in the last time; however, she held and did not revert back to atrial fibrillation. OVERALL IMPRESSION: Successful direct current cardioversion from atrial fibrillation to sinus rhythm. TRANSINT:[id number] Voice Confirmation ID: [id number] DOCUMENT ID: [id number] MARGARETTE ROONEY MD CC: [id number] DICTATION DATE: 03/21/17 1019 SURGERY MANAGER: 03/21/17 1717 DEP CLI 03/21/17 [place] [id number] [place] [address]
--- NOTE | ~2017-03-21 | HEMODYNAMI ---
PATIENT:AD REYNOLDS MEDICAL RECORD: [id number] : [birth year] LOCATION:[facility] ADMISSION DATE: 03/21/17 Generatedon:03/21/201710:14 Patient name: AD REYNOLDS Patient #: [id number] SSN: [id number] : 1930 Date of study: 03/21/2017 Page: Of Hemodynamic Procedure Report Patient Data Patient Demographics Procedure consent was obtained First Name: AD Gender: Female Last Name: GAIL : 1930 Middle Initial: ROBBIE Age: 86 year(s) Patient #: [id number] Race: SSN: [id number] Additional ID: [id number] Contact details [address]: [address] [place] [address] State: [place] City: [place] Zip code: [address] Past Medical History Allergies Allergen Reaction Date Comments Reported Other allergy 03/01/2017 Latex, Sulfa, Epinephrine Admission Admission Data Admission Date: 03/21/2017 Admission Time: 8:01 Procedure Procedure Types Cath Procedure Diagnostic Procedure Cardioversion Procedure Description Procedure Date Procedure Date: 03/21/2017 Procedure Start Time: 10:00 Procedure End Time: 10:13 Procedure Staff Name Function Akhil Deluna MD Performing Physician Cori Gaspar RN Nurse Samy Sanchez RT Monitor Ramses Torres RT Baseball Sewer Hand Procedure Data Cath Procedure Fluoroscopy Diagnostic fluoroscopy Total fluoroscopy Time: 0 time: 0 min min Diagnostic fluoroscopy Total fluoroscopy dose: 0 dose: 0 mGy mGy Contrast Material Contrast Material Type Amount (ml) Isovue 300 0 Estimated blood loss: 10 ml Procedure Complications No complications Procedure Medications Medication Administration Route Dosage Oxygen NC 2 l/min Refer to Anesthesia Notes for Sedation Medications Hemodynamics Rest Heart Rate: 56 (bpm) Snapshots Pre Cath Intra NCS Post Cath Vital Signs Time Heart Resp SPO2 NIBP (mmHg) Rhythm Pain Sedation Rate (ipm) (%) Status Level (bpm) 9:45:24 67 16 99 Measuring A-Fib 0 (11) 10(A) , No pain 9:45:48 62 16 98 163/81(135) A-Fib 0 (11) 10(A) , No pain 9:50:08 62 23 98 135/77(127) A-Fib 0 (11) 10(A) , No pain 9:54:20 61 27 100 151/67(126) A-Fib 0 (11) 10(A) , No pain 9:58:36 64 17 96 165/73(122) A-Fib 0 (11) 10(A) , No pain 10:03:01 63 17 94 128/65(103) A-Fib 0 (11) 5(A) , No pain 10:07:13 62 16 99 122/62(93) A-Fib 0 (11) 5(A) , No pain 10:11:25 63 16 98 123/57(88) A-Fib 0 (11) 9(A) , No pain Medications Time Medication Route Dose Verified Delivered Reason Notes Effectivene ss by by 9:44:09 Oxygen NC 2 Akhil Persaud Per l/min Regi Gaspar RN physician 9:44:20 Refer to Akhil Landaverde Anesthesia Regi Deluna MD Notes for Sedation Medications Procedure Log Time Note 9:25:19 Cori Gaspar RN sent for patient. Start room use. 9:35:57 Time tracking: Regular hours 9:36:01 Plan of Care:Hemodynamics will remain stable., Cardiac rhythm will remain stable., Comfort level will be maintained., Respiratory function will remain adequate., Patient/ family verbilizes understanding of procedure., Procedure tolerated without complication., Recovers from procedure without complications.. 9:37:41 Patient arrived from Pre/Post Procedure Room to CCL 2. Patient remains on bed/stretcher for procedure. 9:37:49 Warm blankets applied, and pernell hugger turned on for patient comfort. 9:37:49 Correct patient and procedure confirmed by team. 9:37:50 Signed procedure consent form obtained from patient. 9:37:51 ECG and BP/O2 sat monitors applied to patient. 9:43:34 Baseline sample Acquired. 9:43:34 Vital chart was started 9:43:44 Rhythm: atrial fibrillation 9:43:46 Full Disclosure recording started 9:44:03 H&P Date Dictated: 03/15/2017 Within 30 days and on chart., H&P Addendum completed by physician on day of procedure. (MUST COMPLETE FOR ALL OUTPATIENTS). 9:44:05 Pre-procedure instructions explained to patient. 9:44:09 Oxygen 2 l/min NC was administered by Cori Gaspar RN; Per physician; 9:44:20 Refer to Anesthesia Notes for Sedation Medications was administered by Akhil Deluna MD; ; 9:44:37 Pre-op teaching completed and patient verbalized understanding. 9:44:39 Family in waiting room. 9:44:42 Patient NPO since Midnight. 9:44:51 ----Pre-sedation anethsthesia assessment.---- 9:45:02 Previous problem with sedation/anesthesia? No ? 9:45:05 Snore? No 9:45:07 Sleep apnea? No 9:45:10 Deviated septum? No 9:45:13 Opens mouth fully? Yes 9:45:16 Sticks out tongue? Yes 9:45:21 Airway obstruction? No ? 9:45:50 IV patent on arrival in left forearm with 0.9% NaCl at KVO. 9:46:[address] FRONT AND BACK 9:46:38 Alarms reviewed by Destin Roach 9:48:25 Physician paged 9:50:03 Louie Parham present and monitoring patient for TIVA. 9:50:54 [employer] community service representative Tom Everett present for procedure. 9:56:26 Quick Combo opened to sterile field. 9:59:10 --------ALL STOP TIME OUT------ 9:59:10 Final Timeout: patient, procedure, and site verified with staff and physician. All members of the team are in agreement. 9:59:15 Physical assessment completed. ASA score P 3 - A patient with severe systemic disease as per Akhil Deluna MD. 9:59:21 Sedation plan: TIVA Propofol 10:00:16 Procedure started. 10:00:40 Defibrillator synced and charged to 200 Joules. 10:00:44 Shock delivered. 10:01:08 Unsuccessful cardioversion. 10:01:12 Defibrillator synced and charged to 300 Joules. 10:01:22 Shock delivered. 10:03:03 Unsuccessful cardioversion. 10:03:12 Defibrillator synced and charged to 360 Joules. 10:03:36 Shock delivered. 10:03:38 Unsuccessful cardioversion. 10:03:44 Procedure ended.(Physican Out) 10:04:26 Fluoroscopy time 00.00 minutes. 10:04:27 Fluoroscopy dose: 0 mGy 10:04:27 Flurop Dose total: 0 10:04:29 Contrast amount:Isovue 300 0ml. 10:04:34 Post-procedure physical assessment completed. ASA score P 3 - A patient with severe systemic disease as per Akhil Deluna MD. 10:04:37 Post procedure rhythm: paced, atrial fibrillation 10:04:40 Estimated blood loss: 10 ml 10:04:48 Post procedure instruction explained to patient.Patient verbalizes understanding. 10:04:48 Patient needs reinforcement of post procedure teaching. 10:04:57 Procedure Complication : No complications 10:05:15 Procedure and supply charges have been captured, reviewed, submitted and are correct. 10:13:37 Vital chart was stopped 10:13:37 See physician's report for complete and final results. 10:13:39 Report given to Pre/Post Procedure Room. 10:13:47 Patient transfered to Pre/Post Procedure Room with Stretcher. 10:13:49 Procedure ended. 10:13:49 Full Disclosure recording stopped 10:13:53 End room use (Document Last) Device Usage Item Manufacture Quantity Catalog Hospital Part Current Minimal Lot# / Name Number Charge Number Stock Stock Fantasma de# Code [employer] 1 [id number] Combo Signature Audit M[place]rack[place] Stage Time Signature Unsigned Intra-Procedure 03/21/2017 Samy Sanchez 10:14:09 AM RT(R) Signatures Monitor : Samy Sanchez RT Signature : Date : Time : [address] [id number]
[~2017-03-21 08:01] MED LIST changes: +ASPIRIN81 MG PO; +CO Q-10100 MG PO; +FLINTSTONE1 TAB.CHEW PO; +OMEGA-3100 MG PO; +PLAVIX75 MG PO
[2017-03-21 08:41] VITALS: BP 144/65; Ht 160 cm; Wt 64.5 kg
[2017-03-21 09:00] LABS: BASOPHILS 0.5 % (0-2); EOSINOPHILS 2.5 % (0-7); HEMATOCRIT 33.2 % (36.0-48.0); HEMOGLOBIN 10.8 g/dL (12-16); IMMATURE GRANULOCYTES 0.2 % (0-5); LYMPHOCYTES 31.9 % (15-50); MCH 31.8 pg (26.0-34.0); MCHC 32.5 g/dL (31.0-37.0); MCV 97.6 fL (80.0-100.0); MEAN PLATELET VOLUME 10.8 fL (7.4-10.4); MONOCYTES 13.2 % (2-11); NEUTROPHILS 51.7 % (40-80); RDW 13.1 % (11.5-14.5); WBC 5.7 10x3/uL (4.8-10.8)
[2017-03-21 09:01] LABS: PLATELET COUNT 202 10x3/uL (130-400)
[2017-03-21 09:11] LABS: ANION GAP 9.9 mmol/L (8-16); CREATININE - SERUM 1.3 mg/dL (0.6-1.3); POTASSIUM - SERUM 3.9 mmol/L (3.5-5.1)
[2017-03-21 09:18] LABS: INR 3.25 (0.85-1.17); PROTIME 33.1 SECONDS (11.6-15.0)
--- NOTE | 2017-03-21 11:06 | NUR ---
1035 SITTING UP IN BED, AWAKE AND ALERT. ALL VITALS WNL. AT BEDSIDE.
--- NOTE | 2017-03-21 11:16 | NUR ---
PIV REMOVED FROM LEFT FOREARM WITH BANDAID APPLIED, PRESSURE HELD TO PREVENT BLEEDING. DR. ROONEY AT BEDSIDE TO SPEAK WITH FAMILY. UP TO BEDSIDE TO DRESS WITH ASSIST FROM .
--- NOTE | 2017-03-21 11:20 | NUR ---
D/C INSTRUCTIONS DISCUSSED WITH PATIENT AND FAMILY AT BEDSIDE. WHEELED OUT VIA WHEELCHAIR BY CATH TEAM.
== END 2017-03-21 11:24 | disposition home or self-care (01) ==
LOC: D.CATH 08:01
PROVIDERS: Internal Medicine Interventional Cardiology
DX: I48.91 Unspecified atrial fibrillation (principal); I25.10 Atherosclerotic heart disease of native coronary artery without angina pectoris; E11.9 Type 2 diabetes mellitus without complications; Z95.5 Presence of coronary angioplasty implant and graft; Z01.812 Encounter for preprocedural laboratory examination; Z95.0 Presence of cardiac pacemaker

== ENCOUNTER → 2017-06-29 17:11 | Outpatient (CLI) | payer MEDICARE ==
[2017-03-21 08:41] VITALS: BMI 25.2
== END | disposition home or self-care (01) ==
LOC: D.MAMMO 14:00
DX: Z85.3 Personal history of malignant neoplasm of breast (principal)

== ENCOUNTER → 2018-04-13 12:41 | Outpatient (CLI) | payer MEDICARE ==
[2017-03-21 08:41] VITALS: BMI 25.2
== END | disposition home or self-care (01) ==
LOC: D.CT 12:41 → D.MRI 13:00
DX: M54.6 Pain in thoracic spine (principal)

== ENCOUNTER → 2018-08-21 17:00 | Outpatient (CLI) | payer MEDICARE ==
[2017-03-21 08:41] VITALS: BMI 25.2
== END | disposition home or self-care (01) ==
LOC: D.MAMMO 15:00
DX: Z12.31 Encounter for screening mammogram for malignant neoplasm of breast (principal)